=== PATIENT | male | born 1980 | race African-American/Black ===

== ENCOUNTER 2017-08-19 05:42 | Inpatient (IN) | payer MEDICAID, OTHER ==
[~2017-08-19] VITALS: Ht 188 cm; Wt 81.6 kg
[~2017-08-19 05:42] MED LIST: PERCT10 PO
[2017-08-19] MEDS ORDERED: QUET100T PO (05:57)
[2017-08-19] MEDS ORDERED: DiphenhydrAMINE HCL 50 MG/ML VIAL IM ONE ×2 (06:30→14:15)
[2017-08-19] MEDS ORDERED: LORazepam 2 MG/ML VIAL IM ONE ×2 (06:30→14:15)
[2017-08-19] MEDS ORDERED: HALOPERIDOL LACTATE 5 MG/ML VIAL IM ONE ×2 (06:30→14:15)
[2017-08-19 06:35] LABS: BASOPHILS # (AUTO) 0.01 K/uL (0.00-0.20); BASOPHILS % (AUTO) 0.2 % (0.0-2.0); EOSINOPHILS # (AUTO) 0.14 K/uL (0.00-0.70); EOSINOPHILS % (AUTO) 1.96 % (1.0-6.0); HEMATOCRIT 43.8 % (41-53); HEMOGLOBIN 14.6 g/dL (13.5-17.5); LYMPHOCYTES # (AUTO) 1.1 K/uL (1.0-4.8); LYMPHOCYTES % (AUTO) 15.3 % (22.0-44.0); MEAN CORPUSCULAR HEMOGLOBIN 29.5 pg (26.0-34.0); MEAN CORPUSCULAR HGB CONC 33.3 G/dL (31.0-37.0); MEAN CORPUSCULAR VOLUME 89 fL (80-100); MONOCYTES # (AUTO) 0.5 K/uL (0.1-1.0); MONOCYTES % (AUTO) 6.3 % (2.0-9.0); NEUTROPHILS # (AUTO) 5.5 K/uL (1.8-7.7); NEUTROPHILS % (AUTO) 76.3 % (40.0-70.0); PLATELET COUNT (AUTO) 164 K/uL (150-450); RED BLOOD CELL COUNT(AUTO) 4.94 MIL/uL (4.50-5.90); RED CELL DISTRIBUTION WIDTH 13.7 % (11.5-14.5); WHITE BLOOD COUNT (AUTO) 7.2 K/uL (4.5-11.0)
[2017-08-19 06:52] LABS: ANION GAP 9 mmol/L (8-16); CALCIUM, TOTAL 8.8 mg/dL (8.8-10.5); CARBON DIOXIDE 27 mmol/L (22-29); CHLORIDE 103 mmol/L (98-107); CREATININE 1.15 mg/dL (0.60-1.30); GLOMERULAR FILTR. RATE CALC > 60 mL/min (>60); POTASSIUM 4.1 mmol/L (3.5-5.1); SODIUM SERUM 139 mmol/L (136-145); UREA NITROGEN, BLOOD 16 mg/dL (7-18)
[2017-08-19 06:56] LABS: ALANINE AMINOTRANSFERASE 16 U/L (12-78); ALBUMIN 4.1 g/dL (3.4-5.0); ASPARTATE AMINOTRANSFERASE 17 U/L (15-37); BILIRUBIN,TOTAL 0.2 mg/dL (0.1-1.0); TOTAL PROTEIN, SERUM 7.7 g/dL (6.4-8.2)
[2017-08-19] MEDS ORDERED: HALOPERIDOL 5 MG TABLET PO PRN (07:30)
[2017-08-19] MEDS ORDERED: LORazepam 2 MG TABLET PO PRN (07:30)
[2017-08-19] MEDS ORDERED: ZOLPIDEM TARTRATE 10 MG TABLET PO PRN (07:30)
[2017-08-19 09:17] VITALS: BP 127/74
[2017-08-20] MEDS ORDERED: INFLUENZA VIRUS VACCINE QVS 2017-18 (3YR+)/PF 60 MCG/0.5 ML SYRINGE IM ONE (01:45)
[2017-08-20] MEDS: RisperiDONE 2 MG TABLET PO SCH ×2 (09:00→17:00)
[2017-08-20] MEDS ORDERED: RISP2 PO (16:13)
[2017-08-20] MEDS ORDERED: PERMETHRIN 5% 60 GM CREAM TP ONE (19:15)
== END 2017-08-20 18:40 | disposition home or self-care (01) | DRG 751 ==
LOC: EMS 05:42 → B3A 07:33
PROVIDERS: ADMIT Psychiatry & Neurology Psychiatry; ATTEND Psychiatry & Neurology Psychiatry
DX: F29 Unspecified psychosis not due to a substance or known physiological condition (principal); F17.210 Nicotine dependence, cigarettes, uncomplicated; F19.10 Other psychoactive substance abuse, uncomplicated; Z71.6 Tobacco abuse counseling; Z71.51 Drug abuse counseling and surveillance of drug abuser; Z28.21 Immunization not carried out because of patient refusal
CPT/HCPCS: 96372; 99291; G0480; J1200; J1630; J2060

== ENCOUNTER 2019-12-21 11:25 | Emergency (ER) | payer MEDICAID, OTHER ==
[~2019-12-21] VITALS: Ht 188 cm; Wt 90.0 kg
[~2019-12-21 11:25] MED LIST changes: -PERCT10 PO; +RISP2 PO
[2019-12-21 11:28] VITALS: BP 133/97
[2019-12-21] MEDS ORDERED: QUET25TA PO (11:31)
== END 2019-12-21 13:27 | disposition home or self-care (01) ==
LOC: EMS 11:26
DX: L84 Corns and callosities (principal); R03.0 Elevated blood-pressure reading, without diagnosis of hypertension; F17.210 Nicotine dependence, cigarettes, uncomplicated; F20.9 Schizophrenia, unspecified; Z79.899 Other long term (current) drug therapy; Z98.890 Other specified postprocedural states